=== PATIENT | female | born 1980 | race Caucasian/White ===

== ENCOUNTER 2020-02-07 12:17 | Emergency (ER) | payer BC ==
[2020-02-08 13:20] LABS: SARS-CoV-2 MS2 Positive; SARS-CoV-2 N Gene Negative; SARS-CoV-2 S Gene Negative; SARS-CoV-2 by NAA Not Detected (NotDetected); SARS-CoV-2 orf1ab Negative
== END 2020-02-07 12:47 | disposition home or self-care (01) ==
LOC: ERS 12:17
DX: R19.7 Diarrhea, unspecified (principal); Z20.828 Contact with and (suspected) exposure to other viral communicable diseases; M19.90 Unspecified osteoarthritis, unspecified site; M79.7 Fibromyalgia; Z87.891 Personal history of nicotine dependence
CPT/HCPCS: 87635; 99283; U0003

== ENCOUNTER 2020-09-05 09:30 | Outpatient (CLI) | payer BC | END 2020-09-05 09:31 | disposition home or self-care (01) | LOC: BICMAMMO 09:30 | PROVIDERS: ATTEND Family Medicine | DX: Z12.31 Encounter for screening mammogram for malignant neoplasm of breast (principal) | CPT/HCPCS: 77063; 77067 ==

== ENCOUNTER 2020-09-26 09:40 | Outpatient (CLI) | payer BC | END 2020-09-26 09:41 | disposition home or self-care (01) | LOC: BICULT 09:40 | PROVIDERS: ATTEND Student in an Organized Health Care Education/Training Program | DX: N93.9 Abnormal uterine and vaginal bleeding, unspecified (principal) | CPT/HCPCS: 76856 ==

== ENCOUNTER 2024-01-03 11:19 | Outpatient (CLI) | payer BC | END 2024-01-03 11:20 | disposition home or self-care (01) | LOC: BICRAD 11:19 | PROVIDERS: ATTEND Internal Medicine Rheumatology | DX: M54.50 Low back pain, unspecified (principal); M25.521 Pain in right elbow; M25.522 Pain in left elbow; M79.641 Pain in right hand; M79.642 Pain in left hand | CPT/HCPCS: 72100; 72202 ==